=== PATIENT | male | born 1990 | race Two or more races ===

== ENCOUNTER 2024-05-17 13:06 | Emergency (ER) | payer OTHER ==
[~2024-05-17] VITALS: Ht 172.7 cm; Wt 81.8 kg
[2024-05-17 13:09] VITALS: TEMP 98.8
[2024-05-17] MEDS: LIDOCAINE 1% 10 ML VIAL ID ONE (16:39)
[2024-05-17] MEDS: HYDROCODONE/ACETAMINOPHEN 5-325 MG TABLET PO ONE (16:49)
[2024-05-17 17:00] VITALS: BP 133/82; PULSE 81; RESP 18; O2SAT 98
[2024-05-17] MEDS ORDERED: CEPH-558 PO (18:40)
[2024-05-17] MEDS: PERTUSS(ACELL),DIPH,TET/PF 0.5 ML SYRINGE [ADULT] IM. ONE (18:51)
[2024-05-17] MEDS: CEPHALEXIN MONOHYDRATE 500 MG CAPSULE PO ONE (18:51)
== END 2024-05-17 19:02 | disposition home or self-care (01) ==
LOC: EMS 13:11
DX: S62.522A Displaced fracture of distal phalanx of left thumb, initial encounter for closed fracture (principal); S61.112A Laceration without foreign body of left thumb with damage to nail, initial encounter; S61.102A Unspecified open wound of left thumb with damage to nail, initial encounter; F17.210 Nicotine dependence, cigarettes, uncomplicated; W22.8XXA Striking against or struck by other objects, initial encounter; Y93.89 Activity, other specified; Y92.89 Other specified places as the place of occurrence of the external cause; Y99.0 Civilian activity done for income or pay
CPT/HCPCS: 11760; 99284; 73140; 90715; 90471; J3490